=== PATIENT | male | born 1995 | race Caucasian/White ===

== ENCOUNTER 2024-01-13 14:27 | Emergency (ER) | payer OTHER, SELFPAY ==
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
[2024-01-13 14:45] VITALS: BP 111/59; PULSE 72; RESP 18; TEMP 36.7; O2SAT 98
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
== END 2024-01-13 15:40 | disposition home or self-care (01) ==
PROVIDERS: Emergency Provider Registered Nurse; PCP Family Medicine
DX: S63.502A Unspecified sprain of left wrist, initial encounter (principal); S66.912A Strain of unspecified muscle, fascia and tendon at wrist and hand level, left hand, initial encounter; V86.06XA Driver of dirt bike or motor/cross bike injured in traffic accident, initial encounter; S63.602A Unspecified sprain of left thumb, initial encounter; F41.9 Anxiety disorder, unspecified; G40.909 Epilepsy, unspecified, not intractable, without status epilepticus; J45.909 Unspecified asthma, uncomplicated; Z86.16 Personal history of COVID-19
CPT/HCPCS: 73110; 99203; G0463

== ENCOUNTER 2025-05-05 10:04 | Emergency (ER) | payer OTHER, SELFPAY ==
--- NOTE | 2025-05-05 10:12 | ED_ITS ---
HPI - Skin/Abscess/Foreign Bdy General Chief complaint: Skin/Abscess/Foreign Body Stated complaint: Rash Source: patient Mode of arrival: ambulatory Limitations: no limitations History of Present Illness HPI narrative: Patient is a 29-year-old male who presents to the clinic with complaints of a rash to his bilateral feet for a week. He states that he gardens outside without shoes on. He has tried using an old fungal cream, but has had no relief. He has not been taking anything over the counter. He does endorse that the rash is itchy, but is not painful. Related Data Home Medications ?Medication ?Instructions ?Recorded ?Confirmed ?Last Taken ?Type albuterol sulfate 90 mcg/actuation 1 inh inhalation Q4H PRN sob 01/13/24 01/13/24 Unknown History aerosol inhaler brivaracetam 50 mg tablet 50 mg PO BID 01/13/24 01/13/24 Unknown History (Briviact) carbamazepine 200 mg tablet See Rx Instructions .Route .COMPLEX 01/13/2412/21 Unknown History citalopram 20 mg tablet 20 mg PO DAILY 01/13/24 01/13/24 Unknown History fluticasone 500 mcg-salmeterol 50 1 inh inhalation BID 01/13/24 01/13/24 Unknown History mcg/dose blistr powdr for inhalation (Advair Diskus) Allergies Allergy/AdvReac Type Severity Reaction Status Date / Time No Known Allergies Allergy Verified 05/05/25 10:13 Review of Systems Review of Systems: CONSTITUTIONAL: Denies body aches, fever, chills, or sweats. EYES: Denies visual changes, redness, or discharge. ENT: Denies rhinorrhea, congestion CARDIOVASCULAR: Denies chest pain, palpitations, or edema. RESPIRATORY: Denies cough or dyspnea. GASTROINTESTINAL: Denies abdominal pain, nausea, vomiting, or diarrhea. SKIN: ?Reports a rash to bilateral feet. MUSCULOSKELETAL: Denies back pain, joint pain, or myalgia. NEUROLOGIC: Denies headache, numbness, tingling, or weakness. All systems reviewed & are unremarkable except as noted in HPI and below PMFSH Past Medical History Medical History Reactive airway disease post COVID Femur fracture Epilepsy Anxiety Social History Social History Smoking status: Never smoker Alcohol intake: unknown Substance use: current Substance use type: marijuana Living arrangements: with family Gender identity (if verbalized by the patient): Male Comments At time of signature, I have reviewed and agree with nursing past medical, surgical, social and family history unless otherwise noted. Please see nursing chart for further information. There is no relevant family history pertinent to the presenting complaint. Exam Narrative: GENERAL: Well-appearing HEAD: Normocephalic, atraumatic. EYES: ?conjunctivae clear, and EOMI. ENT: Mucous membranes moist. Oropharynx without edema, erythema or lesions. NECK: Supple. No lymphadenopathy CHEST: Clear to auscultation. HEART: Regular rate and rhythm. SKIN: Warm, dry. ?Erythemic papules to bilateral dorsum of feet. Evidence of scratching. Left foot 1.5cm abrasion consistent with scratching. No drainage. No tenderness with palpation. NEURO: ?Alert and oriented x3.? Course Course Level of Care: Express Care Visit Vital Signs Vital signs: Reviewed MDM - Skin/Abscess/Foreign Bdy MDM Narrative Medical decision making narrative: Discussed physical exam findings. Triamcinolone cream prescription. Advised supportive measures and signs/symptoms to go to the ER. Pt is appropriate for outpatient treatment and follow up. Differential Diagnosis Differential diagnosis: Likely cellulitis, insect bites and contact dermatitis Critical Care Time Critical Care Time Critical Care Time: No Discharge Plan Discharge Clinical Impression: Rash Patient Disposition: Home Condition: Stable Instructions: Acute Rash (ED) Additional Instructions: The most important part of your care is follow up with Primary care provider. Use Triamcinolone cream as prescribed. Take Benadryl 25mg every 6 hours for itching Take Claritin, Zyrtec, or Laurie daily for the next 7 days Avoid hot showers, Take cool showers. Wash the area with gentle soap and water only. Use skin cream as prescribed to reduce itchiness Avoid scratching when possible to prevent worsening of the condition and disruption of the skin that could lead to bacterial infection To relieve itching, place a cool washcloth or some ice over the area that itches, rather than scratching Follow up with primary care provider or seek ER if you have trouble breathing, become hoarse, or start wheezing, develop belly cramps, vomiting or feel dizzy. Patient Language: Prydeinig Prescriptions: New triamcinolone acetonide 0.1 % cream 1 applic topical BID Qty: 30 0RF No Action citalopram 20 mg tablet 20 mg PO DAILY carbamazepine 200 mg tablet See Rx Instructions .ROUTE .COMPLEX Rx Instructions: as prescribed Briviact 50 mg tablet 50 mg PO BID fluticasone propion-salmeterol [Advair Diskus] 500-50 mcg/dose blister with device 1 inh INHALATION BID albuterol sulfate 90 mcg/actuation HFA aerosol inhaler 1 inh INHALATION Q4H PRN (Reason: sob) Follow-up/Referrals: UNKNOWN,DOCTOR [Primary Care Provider] - Stand Alone Forms: Work/School Release IP Time of Disposition: 10:29
[2025-05-05 10:14] VITALS: BP 129/77; PULSE 64; RESP 16; TEMP 36.4; O2SAT 100
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
--- OUTSIDE RECORDS SUMMARY | 2025-05-05 11:11 | XMS_ITS | Referral Summary ---
Author Organization [facility] Medical Office Building B Address [address] [place] [address] Care Team Providers Care Director Skills Name Role Phone Jacquie Chamorro Unavailable Corinna Castellanos MD Primary Care Provider [phone] Encounters Date Type Department Care Team Description 03/28/2025 5:14 PM CDT - 03/28/2025 11:59 PM CDT Hospital Encounter [facility] Emergency, Room R Discharge Disposition: Discharge to home or self care 03/28/2025 5:35 PM CDT - 03/28/2025 8:42 PM CDT Emergency [facility] Emergency Department [address] [place], [place] [id number] Delmer Mccormack MD Seizure (HCC) (Primary Dx); Non compliance w medication regimen; Moderate asthma, unspecified whether complicated, unspecified whether persistent Discharge Disposition: Discharge to home or self care from Last 3 Months Allergies No known active allergies Medications citalopram (CeleXA) 10 mg tablet Take 1 tablet (10 mg total) by mouth daily Active albuterol HFA (PROVENTIL HFA,VENTOLIN HFA,PROAIR HFA) 90 mcg/actuation inhaler Inhale 2 puffs 08/27/20 22 Active fluticasone propion-salmet Mora (Advair Diskus) 500-50 mcg/dose diskus inhaler Inhale 1 puff every 12 hours 12/20/19 23 Active Incruse Ellipta 62.5 mcg/actuation blister with device INHALE 1 PUFF BY MOUTH AT THE SAME TIME EVERY DAY Active azelastine (ASTELIN) 137 mcg (0.1 %) nasal spray 2 sprays 2 (two) times a day 03/27/20 24 Active ascorbic acid (VITAMIN C) 500 mg tablet,chewabl e Take 1 tablet/chew tab (500 mg total) by mouth 2 (two) times a day 60 tablet/chew tab 08/12/20 24 Active Additional Information Patient not taking.Reported on 01/20/2025 aspirin 81 mg enteric coated tabletIndicati ons:prevention of thrombosis Take 1 tablet (81 mg total) by mouth 2 (two) times a day for 14 days 28 tablet 08/12/20 24 Active Additional Information Patient not taking.Reported on 01/20/2025 cholecalcifero l (VITAMIN D-3) 2000 unit capsule Take 1 capsule (2,000 Units total) by mouth daily 30 capsule 08/12/20 24 Active Additional Information Patient not taking.Reported on 01/20/2025 ondansetron (ZOFRAN) 4 mg tabletIndicati ons:Prevention of Post-Operative Nausea and Vomiting Take 1 tablet (4 mg total) by mouth every 6 (six) hours as needed for nausea or vomiting 30 tablet 1 08/12/20 24 Active Additional Information Patient not taking.Reported on 01/20/2025 senna-docusate (PERICOLACE) 8.6-50 mg Take 1 tablet by mouth 2 (two) times a day as needed for constipation 30 tablet 1 08/12/20 24 Active Additional Information Patient not taking.Reported on 01/20/2025 HYDROcodone-ac etaminophen (NORCO) 5-325 mg per tabletIndicati ons:Pain Take 1-2 tablets by mouth every 6 (six) hours as needed for pain 30 tablet 08/15/20 24 Active Additional Information Patient not taking.Reported on 01/20/2025 carBAMazepine (TEGretol) 200 mg tablet Take 3 tablets (600 mg total) by mouth 2 (two) times a day 180 tablet 11 01/21/20 25 Active brivaracetam (Briviact) 50 mg tablet TAKE 1 TABLET(50 MG) BY MOUTH TWICE DAILY 60 tablet 5 04/29/20 25 Active brivaracetam (Briviact) 50 mg tablet TAKE 1 TABLET(50 MG) BY MOUTH TWICE DAILY 60 tablet 03/02/20 25 025 Discontinued Active Problems Problem Noted Date Diagnosed Date Rupture of anterior cruciate ligament of right k nee 08/04/2024 Tear of medial meniscus of right knee, current 0 08/04/2024 Leukocytosis 04/21/2018 Assessment & Plan (04/21/2018 5:20 AM CDT): No obvious signs of infection. Possibly reactive or even side effect of tegretol. Will continue to monitor. If persistent, patient may need hematology follow up as outpatient. Cocaine abuse 05/09/2016 Seizure 05/09/2016 Assessment & Plan (04/21/2018 5:19 AM CDT): Likely due to missed doses of tegretol. Tegretol has been resumed. Neurology has been consulted, will await their recommendations. Seizure precautions. PRN ativan. Anxiety 05/09/2016 Resolved Problems Problem Noted Date Diagnosed Date Resolved Date Lactic acidosis 04/21/2018 04/21/2018 Assessment & Plan (04/21/2018 5:20 AM CDT): Likely due to seizures. Will continue to monitor. Social History Tobacco Use Types Packs/Day Years Used Date Smoking Tobacco: Never Smokeless Tobacco: Never Tobacco Cessation:Counseling Given: Not Answered Alcohol Use Standard Drinks/Week Comments Yes 0 (1 standard drink = 0.6 oz pur e alcohol) Has not drank in 2 months AUDIT-C Answer Date Recorded Q1: How often do you have a drink containing alc ohol? 2-4 times a month 08/04/2024 Q2: How many drinks containi ng alcohol do you have on a typical day when you are drinking? 1 or 2 08/04/2024 Q3: How often do you have si x or more drinks on one occasion? Never 08/04/2024 Personal Safety Answer Date Recorded Have you ever been in or are you currently in a harmful physical or emotional relationship or is someone making you feel afraid or unsafe? Denies 03/28/2025 Sex and Gender Information Value Date Recorded Sex Assigned at Not on file Legal Sex Male 4:10 AM [employer] Gender Identity Not on file Sexual Orientation Not on file Last Filed Vital Signs Vital Sign Reading Time Taken Comments Blood Pressure 132/80 03/28/2025 7:45 PM CDT Pulse 102 03/28/2025 8:15 PM CDT Temperature 36 C (96.8 F) 03/28/2025 7:45 PM CDT Respiratory Rate 26 03/28/2025 5:35 PM CDT Oxygen Saturation 94% 03/28/2025 8:0 3 PM CDT After ambulating Inhaled Oxygen Concentration - - Weight 70.3 kg (155 lb) 03/28/2025 5:35 PM CDT Height 172.7 cm (5' 8) 03/28/2025 5:35 PM CDT Body Mass Index 23.57 03/28/2025 5:35 PM CDT Plan of Treatment Not on file Medical Devices Implanted Type Area Slag Wheeler Device Identifier Shelf Expiration Date Model / Serial / Lot Lifenet Flexigraft Graftlink 7.5-10.5mm 60-80mm Frozen Allograft l - [id number] - [id number] Implanted:Qty: 1 on 08/12/2024 by Cordell Elias MD at [facility] Right: Knee Lifenet 01/22/2027 [employer] / [id number] / [employer] Suture [place] Knotless Tightrope Ii [id number] - [id number] Implanted:Qty: 1 on 08/12/2024 by Cordell Elias MD at [facility] Right: Knee [employer] 11/18/2028 AR-1588BTB- IB / / [id number] [employer] Suture [place] Attachable Button System Tightrope Ii Titanium [id number] - [id number] Implanted:Qty: 1 on 08/12/2024 by Cordell Elias MD at [facility] Right: Knee [employer] 12/19/2028 AR-1588TN-2 1 / / [id number] [employer] Suture 2-0 1.5in 24 Degree Curved Fiberstitch Fiberwire Ar-4580-24 - Sna - [id number] Implanted:Qty: 2 on 08/12/2024 by Cordell Elias MD at [facility] Right: Knee [employer] 11/18/2028 AR-4580-24 / NA / [id number] [employer] Suture 2-0 1.5in 24 Degree Curved Fiberstitch Fiberwire Ar-4580-24 - Sna - [id number] Implanted:Qty: 1 on 08/12/2024 by Cordell Elias MD at [facility] Right: Knee [employer] 11/18/2028 AR-4580-24 / NA / [id number] [employer] Suture 2-0 1.5in 24 Degree Curved Fiberstitch Fiberwire Ar-4580-24 - Sn/A - [id number] Implanted:Qty: 2 on 08/12/2024 by Cordell Elias MD at [facility] Right: Knee [employer] 11/18/2028 AR-4580-24 / N/A / [id number] [employer] Button Tightrope Abs Round Concave 11mm [id number] - Sn/A - [id number] Implanted:Qty: 1 on 08/12/2024 by Cordell Elias MD at [facility] Right: Knee [employer] 02/16/2029 AR-1588TB-3 IB / N/A / [id number] [employer] Swivelock C 4.75mm 19.1mm Closed Eyelet Vent [place] Suture Ar-2324bcc - [id number] Implanted:Qty: 1 on 08/12/2024 by Cordell Elias MD at [facility] Right: Knee [employer] 05/18/2028 AR-2324BCC / / [id number] [employer] Swivelock C 4.75mm 19.1mm Closed Eyelet Vent [place] Suture Ar-2324bcc - [id number] Implanted:Qty: 1 on 08/12/2024 by Cordell Elias MD at [facility] Right: Knee [employer] 05/18/2028 AR-2324BCC / / [id number] Procedures Procedure Name Priority Date/Time Associated Diagnosis Comments XR CHEST 1 VIEW ED 03/28/2025 6:13 PM CDT ECG 12-LEAD STAT 03/28/2025 5:45 PM CDT EGFR STAT 03/28/2025 5:45 PM CDT DIFFERENTIAL AUTO STAT 03/28/2025 5:4 5 PM CDT CARBAMAZEPINE LEVEL, TOTAL Add-On 03/28/2025 5:45 PM CDT ETHANOL STAT 03/28/2025 5:45 PM CDT COMPREHENSIVE METABOLIC PANEL STAT 03/28/2025 5:45 PM CDT CBC WITH AUTO DIFFERENTIAL STAT 03/28/2025 5:45 PM CDT from Last 3 Months Results * XR Chest 1 Vw Portable (03/28/2025 6:13 PM CDT) Anatomical Region Laterality Modality Body, Chest N/A Computed Radiogr aphy 03/28/2025 6:20 PM CDT Narrative 03/28/2025 6:22 PM CDT EXAM DESCRIPTION: XR CHEST 1 VIEW REASON FOR STUDY: sob Patient to ED via EMS from home with complaints of approx 10 min seizure. Hx seizures. States he has not taken meds x 2 days, states he forgot to take them. EMS admin 2 duo neb for asthma, states hx asthma. Patient 88% on room air upon arrival, placed on 2 LNC. TECHNIQUE: Frontal radiographic view(s) of the chest. COMPARISON: 04/20/2018 FINDINGS: LUNGS: Subtle hazy bibasilar airspace opacities are present which likely reflects atelectasis. However, early aspiration pneumonitis/developing pneumonia remains a possibility in the appropriate clinical setting. No definitive pleural effusion or pneumothorax. HEART/MEDIASTINUM: Cardiac silhouette normal in size. Mediastinal and hilar contours appear normal. LINES/TUBES: None. BONES: No acute osseous abnormality. IMPRESSION: 1. Subtle hazy bibasilar airspace opacities likely reflect atelectasis. However, early aspiration pneumonitis/developing pneumonia remains a possibility in the appropriate clinical setting . Clinical correlation is recommended THIS IS AN ELECTRONICALLY VERIFIED FINAL REPORT 03/28/2025 6:22 PM - Electronically signed by Leeanna Phillips M.D. AT: AT Report ID: [id number] Reading Location: [id number] Procedure Note Leeanna Phillips MD - 03/28/2025 EXAM DESCRIPTION: XR CHEST 1 VIEW REASON FOR STUDY: sob Patient to ED via EMS from home with complaints of approx 10 min seizure.Hx seizures. States he has not taken meds x 2 days, states he forgot to take them. EMS admin 2 duo neb for asthma, states hx asthma. Patient 88% onroom air upon arrival, placed on 2 LNC. TECHNIQUE: Frontal radiographic view(s) of the chest. COMPARISON: 04/20/2018 FINDINGS: LUNGS: Subtle hazy bibasilar airspace opacities are present which likely reflects atelectasis. However, early aspiration pneumonitis/developing pneumonia remains a possibility in the appropriate clinical setting. No definitive pleural effusion or pneumothorax. HEART/MEDIASTINUM: Cardiac silhouette normal in size. Mediastinal andhilar contours appear normal. LINES/TUBES: None. BONES: No acute osseous abnormality. IMPRESSION: 1. Subtle hazy bibasilar airspace opacities likely reflect atelectasis. However, early aspiration pneumonitis/developing pneumonia remains a possibility in the appropriate clinical setting . Clinical correlation is recommended THIS IS AN ELECTRONICALLY VERIFIED FINAL REPORT 03/28/2025 6:22 PM - Electronically signed by Leeanna Phillips M.D. AT: AT Report ID: [id number] Reading Location: [id number] Delmer Mccormack MD IMG XR PROCEDURES Final Result * ECG 12 lead (03/28/2025 5:45 PM CDT) 03/28/2025 5:45 PM CDT Narrative [facility] - 03/30/2025 6:31 AM CDT Vent Rate: 101 bpm RR Interval: 593 msec IA Interval: 124 msec QRS Duration: 93 msec QT Interval: 344 msec QTC Interval: 402 msec P-R-T [place]: 76 - 55 - 59 degrees IMPRESSION: SINUS TACHYCARDIA POSSIBLE LEFT ATRIAL ENLARGEMENT [-0.1mV P-WAVE IN V1/V2] ABNORMAL RHYTHM ECG Electronically Signed By: Andrew Montoya MD Delmer Mccormack MD ECG ORDERABLES Final Result [facility] * eGFR (03/28/2025 5:45 PM CDT) eGFR >90 >=60 mL/min/1. 73 m2 Comment: Interpretive Data Reference Interval Normal >/= 90 mL/min/1.73m2 Mildly decreased* 60 - 89 mL/min/1.73m2 Mildly to moderately decreased 45 - 59 mL/min/1.73m2 Moderately to severely decreased 30 - 44 mL/min/1.73m2 Severely decreased 15 - 29 mL/min/1.73m2 Kidney Failure < 15 mL/min/1.73m2 *Relative to young adult level Estimated glomerular filtration rate is determined by the 2020 CKD-EPI equation recommended by the National Kidney Foundation (A Unifying Approach to GFR Estimation: Recommendations of the NKF-ASK Task Force on Reassessing the Inclusion of Race in Diagnosing Kidney Disease, JASN 2020). The CKD-EPI equation should not be used for patients with unstable renal function and has not been validated in children and those over 70. Current interpretive data was last reviewed 2021. Blood 03/28/2025 5:45 PM CDT 03/28/2025 5:51 PM CDT us Delmer Mccormack MD LAB BLOOD ORDERABLES Final Res ult [facility] ([place]) [address] [facility] [place] [address] * (ABNORMAL) Differential, auto (03/28/2025 5:45 PM CDT) Neutrophil abs 13.93(H) 1.50 - 6.50 K/cumm Imm gran abs 0.41(H) 0.00 - 0.10 K/cumm [facility] ([place]) Lymphocyte abs 2.30 0.80 - 3.30 K/cumm [facility] ([place]) Monocyte abs 1.03(H) 0.20 - 0.80 K/cumm [facility] ([place]) Eosinophil abs 0.36 0.00 - 0.50 K/cumm [facility] ([place]) Basophil abs 0.11(H) 0.00 - 0.10 K/cumm [facility] ([place]) Neutrophil pct 76.7 % [facility] ([place]) Comment: Interpretive Data Percent cell count reference ranges are not reported, since discordance with absolute values may lead to misinterpretation of CBC data. Current Interpretive Data was last revised on 2018. Imm gran pct 2.3 % [facility] ([place]) Comment: Interpretive Data Percent cell count reference ranges are not reported, since discordance with absolute values may lead to misinterpretation of CBC data. Current Interpretive Data was last revised on 2018. Lymphocyte pct 12.7 % [facility] ([place]) Comment: Interpretive Data Percent cell count reference ranges are not reported, since discordance with absolute values may lead to misinterpretation of CBC data. Current Interpretive Data was last revised on 2018. Monocyte pct 5.7 % [facility] ([place]) Comment: Interpretive Data Percent cell count reference ranges are not reported, since discordance with absolute values may lead to misinterpretation of CBC data. Current Interpretive Data was last revised on 2018. Eosinophil pct 2.0 % [facility] ([place]) Comment: Interpretive Data Percent cell count reference ranges are not reported, since discordance with absolute values may lead to misinterpretation of CBC data. Current Interpretive Data was last revised on 2018. Basophil pct 0.6 % [facility] ([place]) Comment: Interpretive Data Percent cell count reference ranges are not reported, since discordance with absolute values may lead to misinterpretation of CBC data. Current Interpretive Data was last revised on 2018. Blood 03/28/2025 5:45 PM CDT 03/28/2025 5:51 PM CDT us Delmer Mccormack MD LAB BLOOD ORDERABLES Final Res ult [facility] ([place]) 1 [facility] Department of Laboratories [place], [place] [id number] * (ABNORMAL) CBC with auto differential (03/28/2025 5:45 PM CDT) WBC 18.14(H) 3.80 - 9.90 K/cumm Hgb 16.6 13.0 - 17.5 g/dL [facility] ([place]) Hct 47.1 38.9 - 50.3 % [facility] ([place]) Plt 462(H) 150 - 400 K/cumm [facility] ([place]) MPV 10.1 9.1 - 12.3 fL [facility] ([place]) RBC 5.35 4.30 - 5.80 M/cumm [facility] ([place]) MCV 88.0 81.3 - 96.4 fL [facility] ([place]) MCH 31.0 27.1 - 33.3 pg [facility] ([place]) MCHC 35.2 32.3 - 35.7 g/dL [facility] ([place]) RDW CV 11.9 11.1 - 14.9 % [facility] ([place]) RDW SD 38.4 35.7 - 48.1 fL [facility] ([place]) NRBC abs 0.00 0.00 - 0.01 K/cumm [facility] ([place]) Blood 03/28/2025 5:45 PM CDT 03/28/2025 5:51 PM CDT us Delmer Mccormack MD LAB BLOOD ORDERABLES Final Res ult [facility] ([place]) [address] Department [place] [address] * Ethanol (03/28/2025 5:45 PM CDT) Ethanol <10 <=10 mg/dL Comment: Interpretive Data Legal limit of intoxication > or = 80 mg/dL Levels > or = 400 mg/dL are potentially TOXIC. Current interpretive data was last revised on 2019. Blood 03/28/2025 5:45 PM CDT 03/28/2025 5:51 PM CDT Delmer Mccormack MD LAB BLOOD ORDERABLES Final Res ult Performing Organization Address City/[facility]/ZIP Co de Phone Number [facility] ([place]) [address] [place] [address] * (ABNORMAL) Carbamazepine level, total (03/28/2025 5:45 PM CDT) Pathologist [facility] Carbamazepine <3.0(L) 4.0 - 12.0 mcg/mL Comment: Interpretive Data Therapeutic or Toxic effect of anticonvulsant drugs may occur at different concentrations in different patients and the correlation between dose and clinical effect must be evaluated individually. Current interpretive data was last revised on 14. Testing performed by: [facility], [address] [facility] [place] [address] Blood 03/28/2025 5:45 PM CDT 03/28/2025 7:30 PM CDT Delmer Mccormack MD LAB BLOOD ORDERABLES Final Res ult [facility] ([place]) [address] [place] [address] * (ABNORMAL) Comprehensive metabolic panel (03/28/2025 5:45 PM CDT) Sodium 132(L) 135 - 145 mmol/L Potassium, pl 3.5 3.3 - 4.9 mmol/L [facility] ([place]) Chloride 91(L) 97 - 110 mmol/L [facility] ([place]) CO2 16(L) 22 - 32 mmol/L [facility] ([place]) Anion gap 25(H) 2 - 15 mmol/L [facility] ([place]) BUN 11 6 - 25 mg/dL [facility] ([place]) Creatinine 1.12 0.80 - 1.30 mg/dL [facility] ([place]) Glucose 233(H) 70 - 199 mg/dL [facility] ([place]) Comment: Interpretive Data Fasting glucose >/= 126 mg/dl is diagnostic for diabetes. Fasting is defined as no caloric intake for at least 8 hours. Fasting glucose between 100 mg/dl to 125 mg/dl is diagnostic of prediabetes. In a patient with classic symptoms of hyperglycemia or hyperglycemic crisis, a random glucose >/= 200 mg/dl is diagnostic for diabetes. In the absence of unequivocal hyperglycemia, results should be confirmed by repeat testing. The classification and Diagnosis of Diabetes Diabetes Care 2021; 46: S19-S40. Current interpretive data was last revised 2022. Calcium 10.4(H) 8.5 - 10.3 mg/dL [facility] ([place]) Bilirubin, total 0.5 0.1 - 1.2 mg/dL [facility] ([place]) Protein, pl 8.3 6.5 - 8.5 g/dL [facility] ([place]) Albumin 4.6 3.5 - 5.0 g/dL [facility] ([place]) Alk phos 106 40 - 130 Units/L [facility] ([place]) ALT 39 7 - 55 Units/L [facility] ([place]) AST 45 10 - 50 Units/L [facility] ([place]) Blood 03/28/2025 5:45 PM CDT 03/28/2025 5:51 PM CDT us Delmer Mccormack MD LAB BLOOD ORDERABLES Final Res ult [facility] ([place]) [address] [facility] Department [place] [address] from Last 3 Months Insurance [facility] MEDICAID [facility] IDPA [facility] Advance Directives For more information, please contact: [phone] * Full Code (Latest Code Status on File) Date Activated Date Inactivated Comments 04/20/2018 7:36 PM 04/21/2018 5:36 PM Healthcare Agents on File Name Relationship Healthcare Agent Relationshi p Communication Nayely Manuel Mother Health Care Agent Jaydon Jackson Father First Alternate Health Care Agent Care Teams Director Skills Relationship Specialty Start Date End Date Corinna Castellanos MD [address] [place] [address] PCP - General Obstetrics and Gynecology 01/20/25 Jacquie Chamorro PA [address] [place] [id number] Orthopedic Surgery 08/12/24
--- OUTSIDE RECORDS SUMMARY | 2025-05-05 11:11 | XMS_ITS | Clinical Summary ---
Author Organization [facility] Medical Office Building B Address [address] [place] [address] Care Team Providers Care Deputy Sheriff/Investigator Name Role Phone Jacquie Chamorro Unavailable Corinna Castellanos MD Primary Care Provider [phone] Allergies No known active allergies Medications citalopram [...] due to seizures. Will continue to monitor. Encounters Date Type Department Care Team Description 03/28/2025 5:35 PM CDT - 03/28/2025 8:42 PM CDT Emergency [facility] Emergency Department [address] [place] [address] Delmer Mccormack MD Seizure (HCC) (Primary Dx); Non compliance w medication regimen; Moderate asthma, unspecified whether complicated, unspecified whether persistent Discharge Disposition: Discharge to home or self care 03/28/2025 5:14 PM CDT - 03/28/2025 11:59 PM CDT Hospital Encounter [facility] Emergency, Room R Discharge Disposition: Discharge to home or self care from Last 3 Months Surgical History Surgery Date Site/Laterality Comments KNEE ARTHROSCOPY W/ ACL RECONSTRUCTION 07/20/2024 - 08/18 Right Medical History Medical History Date Comments Seizure (HCC) Epilepsy (HCC) Allergic rhinitis Asthma Social History Tobacco Use Types Packs/Day Years [...] on file 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 Gender Identity Not on file Sexual Orientation Not on file Obstetrics History Last Filed Vital Signs Vital Sign Reading [...] 03/28/2025 5:35 PM CDT Plan of Treatment Health Maintenance Due Date Last Done Comments Depression Screening 1997 Hepatitis C Screening 1997 Pneumococcal vaccine <65 (1 of 1 - PPSV23) 2003 12/04/2000, 01/05/1999 DTaP/Tdap/Td Vaccine (6 - Tdap) 2008 06/14/2007, 10/29/1998, 07/05/1998, Additional history exists Regular Well Visit/Exam 18-64 2015 Influenza Vaccine (Season Ended) 2025 09/04/2012, 11/09/2011, 10/03/2004, Additional history exists Hepatitis B Screening Completed 02/09/1998 , 1997, 1997 Varicella Vaccines Completed 06/14/2007, 01/05/1999 HPV Vaccines Completed 01/04/2012, 08/19, 06/20/2011 Medical Devices Implanted Type Area Linux Devops Engineer Device Identifier Shelf Expiration Date Model / Serial / Lot Lifenet Flexigraft Graftlink 7.5-10.5mm 60-80mm Frozen Allograft Fgl - [id number] - [id number] Implanted:Qty: 1 on 08/12/2024 by Cordell Elias MD at [facility] Right: Knee Lifenet 01/22/2027 [facility] / [id number] / [employer] Suture [place] Knotless Tightrope Ii [id number] - [id number] Implanted:Qty: 1 on 08/12/2024 by Cordell Elias MD at [facility] Right: Knee [employer] 11/18/2028 AR-1588BTB- IB / / [id number] [employer] Suture [place] Attachable Button System Tightrope Ii Titanium [id number] - [id number] Implanted:Qty: 1 on 08/12/2024 by Cordell Elias MD at [facility] Right: Knee [employer] 12/19/2028 AR-1588TN-2 1 / / [id number] [employer] Suture 2-0 1.5in 24 Degree Curved Fiberstitch Fiberwire Ar-4580-24 - Sna - [id number] Implanted:Qty: 2 on 08/12/2024 by Cordell Elias MD at [facility] Right: Knee [employer] 11/18/2028 AR-4580-24 / NA / [id number] [employer] Suture 2-0 1.5in 24 Degree Curved Fiberstitch Fiberwire Ar-4580-24 - Sna - [id number] Implanted:Qty: 1 on 08/12/2024 by Cordell Elias MD at [facility] Right: Knee [employer] 11/18/2028 AR-4580-24 / NA / [id number] [employer] Suture 2-0 1.5in 24 Degree Curved Fiberstitch Fiberwire Ar-4580-24 - Sn/A - [id number] Implanted:Qty: 2 on 08/12/2024 by Cordell Elias MD at [facility] Right: Knee [employer] 11/18/2028 AR-4580-24 / N/A / [id number] [employer] Button Tightrope Abs Round Concave 11mm [id number] - Sn/A - [id number] Implanted:Qty: 1 on 08/12/2024 by Cordell Elias MD at [facility] Right: Knee [employer] 02/16/2029 AR-1588TB-3 IB / N/A / [id number] [employer] Swivelock C 4.75mm 19.1mm Closed Eyelet Vent Mcclelland Suture Ar-2324bcc - [id number] Implanted:Qty: 1 on 08/12/2024 by Cordell Elias MD at [facility] Right: Knee [employer] 05/18/2028 AR-2324BCC / / [id number] [employer] Swivelock C 4.75mm 19.1mm Closed Eyelet Vent Mcclelland Suture Ar-2324bcc - [id number] Implanted:Qty: 1 on 08/12/2024 by Cordell Elias MD at [facility] Right: Knee [employer] 05/18/2028 AR-2324BCC / / [id number] Procedures Procedure Name Priority Date/Time Associated Diagnosis [...] Leeanna Phillips M.D. AT: AT Report ID: [id number] Reading Location: [id number] Procedure Note Leeanna Phillips MD - 03/28/2025 [...] Leeanna Phillips M.D. AT: AT Report ID: [id number] Reading Location: [place] [address] Delmer Mccormack MD IMG XR PROCEDURES Final Result * ECG 12 lead (03/28/2025 5:45 PM CDT) 03/28/2025 5:45 PM CDT Narrative [facility] - 03/30/2025 6:31 AM CDT Vent Rate: 101 bpm RR Interval: 593 msec OR Interval: 124 msec QRS Duration: 93 msec QT Interval: 344 msec QTC Interval: 402 msec P-R-T [place]: 76 - 55 - 59 degrees IMPRESSION: SINUS TACHYCARDIA POSSIBLE LEFT ATRIAL ENLARGEMENT [-0.1mV P-WAVE IN V1/V2] ABNORMAL RHYTHM ECG Electronically Signed By: Andrew Montoya MD Delmer Mccormack MD ECG ORDERABLES Final Result [facility] [employer] [facility] [[email or web address]] * eGFR (03/28/2025 5:45 PM CDT) eGFR [...] LAB BLOOD ORDERABLES Final Res ult [facility] ([place]) [address] [facility] Department [place] [address] * (ABNORMAL) Differential, auto (03/28/2025 5:45 PM CDT) Neutrophil abs 13.93(H) 1.50 - 6.50 K/cumm Imm gran abs 0.41(H) 0.00 - 0.10 K/cumm [facility] ([place]) Lymphocyte abs 2.30 0.80 - 3.30 K/cumm [facility] ([place]) Monocyte abs 1.03(H) 0.20 - 0.80 K/cumm [facility] ([place]) Eosinophil abs 0.36 0.00 - 0.50 K/cumm [facility] ([place]) Basophil abs 0.11(H) 0.00 - 0.10 K/cumm [facility] ([place]) Neutrophil pct 76.7 % [facility] ([place]) Comment: Interpretive Data Percent cell count reference ranges are not reported, since discordance with absolute values may lead to misinterpretation of CBC data. Current Interpretive Data was last revised on 2018. Imm gran pct 2.3 % [facility] ([place]) Comment: Interpretive Data Percent cell count reference ranges are not reported, since discordance with absolute values may lead to misinterpretation of CBC data. Current Interpretive Data was last revised on 2018. Lymphocyte pct 12.7 % [facility] ([place]) Comment: Interpretive Data Percent cell count reference ranges are not reported, since discordance with absolute values may lead to misinterpretation of CBC data. Current Interpretive Data was last revised on 2018. Monocyte pct 5.7 % [facility] ([place]) Comment: Interpretive Data Percent cell count reference ranges are not reported, since discordance with absolute values may lead to misinterpretation of CBC data. Current Interpretive Data was last revised on 2018. Eosinophil pct 2.0 % [facility] ([place]) Comment: Interpretive Data Percent cell count reference ranges are not reported, since discordance with absolute values may lead to misinterpretation of CBC data. Current Interpretive Data was last revised on 2018. Basophil pct 0.6 % [facility] ([place]) Comment: Interpretive Data Percent cell count reference ranges are not reported, since discordance with absolute values may lead to misinterpretation of CBC data. Current Interpretive Data was last revised on 2018. Blood 03/28/2025 5:45 PM CDT 03/28/2025 5:51 PM CDT us Delmer Mccormack MD LAB BLOOD ORDERABLES Final Res ult [facility] ([place]) [address] [facility] Department [place] [address] * (ABNORMAL) CBC with auto differential (03/28/2025 5:45 PM CDT) WBC 18.14(H) 3.80 - 9.90 K/cumm Hgb 16.6 13.0 - 17.5 g/dL [facility] ([place]) Hct 47.1 38.9 - 50.3 % [facility] ([place]) Plt 462(H) 150 - 400 K/cumm [facility] ([place]) MPV 10.1 9.1 - 12.3 fL [facility] ([place]) RBC 5.35 4.30 - 5.80 M/cumm [facility] ([place]) MCV 88.0 81.3 - 96.4 fL [facility] ([place]) MCH 31.0 27.1 - 33.3 pg [facility] ([place]) MCHC 35.2 32.3 - 35.7 g/dL [facility] ([place]) RDW CV 11.9 11.1 - 14.9 % [facility] ([place]) RDW SD 38.4 35.7 - 48.1 fL [facility] ([place]) NRBC abs 0.00 0.00 - 0.01 K/cumm [facility] ([place]) Blood 03/28/2025 5:45 PM CDT 03/28/2025 5:51 PM CDT Delmer Mccormack MD LAB BLOOD ORDERABLES Final Res ult Performing Organization Address [facility] Co de Phone Number [facility] ([place]) [address] [facility] [address] * Ethanol (03/28/2025 5:45 PM CDT) Ethanol <10 <=10 mg/dL Comment: Interpretive Data Legal limit of intoxication > or = 80 mg/dL Levels > or = 400 mg/dL are potentially TOXIC. Current interpretive data was last revised on 2019. Blood 03/28/2025 5:45 PM CDT 03/28/2025 5:51 PM CDT Delmer Mccormack MD LAB BLOOD ORDERABLES Final Res ult [facility] ([place]) 1 [facility] [place] [address] * (ABNORMAL) Carbamazepine level, total (03/28/2025 5:45 PM CDT) Carbamazepine <3.0(L) 4.0 - 12.0 mcg/mL Comment: Interpretive Data Therapeutic or Toxic effect of anticonvulsant drugs may occur at different concentrations in different patients and the correlation between dose and clinical effect must be evaluated individually. Current interpretive data was last revised on 14. Testing performed by: [facility], [address] [place]., [address] Blood 03/28/2025 5:45 PM CDT 03/28/2025 7:30 PM CDT us Delmer Mccormack MD LAB BLOOD ORDERABLES Final Res ult [facility] ([place]) [address] [facility] Department [place] [address] * (ABNORMAL) Comprehensive metabolic panel (03/28/2025 5:45 PM CDT) Sodium 132(L) 135 - 145 mmol/L Potassium, pl 3.5 3.3 - 4.9 mmol/L [facility] ([place]) Chloride 91(L) 97 - 110 [...] MD LAB BLOOD ORDERABLES Final Res ult [facility] ([place]) [address] [facility] Department [place] [address] from Last 3 Months Insurance [facility] MEDICAID [facility] IDPA [facility] Advance Directives For more information, please contact: [phone] * Full Code (Latest Code Status on File) Date Activated Date Inactivated Comments 04/20/2018 7:36 PM 04/21/2018 5:36 PM Healthcare Agents on File Name Relationship Healthcare Agent Relationshi p Communication Nayely Jackson Mother Health Care Agent Jaydon Jackson Father First Alternate Health Care Agent Care Teams Deputy Sheriff/Investigator Relationship Specialty Start Date End Date Corinna Castellanos MD [address] [place] [address] PCP - General Obstetrics and Gynecology 01/20/25 Jacquie Chamorro PA [address] [place] [id number] Orthopedic Surgery 08/12/24
--- OUTSIDE RECORDS SUMMARY | 2025-05-05 11:12 | XMS_ITS | Clinical Summary ---
Author Organization [facility] Address [address] [place] [address] Care Team Providers Care Agricultural Equipment Sales Manager Name Role Phone Lisa Page MD Primary Care Provider Source Comments [facility],non-owned Affiliates and Associated Physician Practices is amultiple site organization consisting of ambulatory clinics and hospital sitesin [place], [place], [place] and [place]. This disclosure is being madepursuant to the Care Everywhere program and may not contain all information available regarding this patient. Last updated 18.[facility] Allergies No known active allergies Medications * Be aware that medications may not be up to date on this document. Alwaysverify current medications with the patient. No known medications Active Problems Problem Noted Date Diagnosed Date Dizziness 01/27/2014 Nevus 05/20/2010 Overview (04/12/2015): Nevus 05/20/2010 Overview (04/12/2015): Family History Medical History Relation Name Comments CVA<55(male) Maternal Grandfather Stroke Maternal Grandfather Cancer Paternal Grandfather Asthma Sister Arrhythmia Neg Hx CVA<65(female) Neg Hx Cardiomyopathy Neg Hx Congenital Heart defect Neg Hx Heart Surgery Neg Hx Long QT Syndrome Neg Hx RI<55(male) Neg Hx RI<65(female) Neg Hx Marfan Syndrome Neg Hx Pacemaker Neg Hx Sudd. 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 Gender Identity Not on file Sexual Orientation Not on file Last Filed Vital Signs Vital Sign Reading Time Taken Comments Blood Pressure 118/60 01/27/2014 1:40 PM CDT Pulse 64 01/27/2014 1:40 PM CDT Temperature - - Respiratory Rate 16 01/27/2014 1:40 PM CDT Oxygen Saturation 98% 01/27/2014 1:40 PM CDT Inhaled Oxygen Concentration - - Weight 65.8 kg (145 lb 1 oz) 01/27/2014 1:40 PM CDT Height 147.7 cm (4' 10.15) 01/27/2014 1:40 PM C DT Body Mass Index 30.16 01/27/2014 1:40 PM CDT Plan of Treatment Health Maintenance Due Date Last Done Comments HIV SCREENING 2012 HEPATITIS C SCREENING 06/25/2015 DTAP/TDAP/TD VACCINES (1 - Tdap) 2016 HEPATITIS B VACCINE (1 of 3 - 19+ 3-dose series) 2016 COVID-19 VACCINE (1 - 2023-2 5 season) 2024 DEPRESSION SCREENING 11/19/2024 INFLUENZA VACCINE (Season Ended) 2025 ZOSTER VACCINE (1 of 2) 2047 HIB VACCINE Aged Out No longer eligi ble based on patient's age to complete this topic HPV VACCINE Aged Out No longer eligi ble based on patient's age to complete this topic MENINGOCOCCAL (Group B) VACC INE SHARED DECISION-MAKING Aged Out No longer eligibl e based on patient's age to complete this topic MENINGOCOCCAL GROUPS A/C/Y/W VACCINE Aged Out No longer eligible b ased on patient's age to complete this topic PNEUMOCOCCAL VACCINE Aged Out No long er eligible based on patient's age to complete this topic Insurance MEDICAID - [place] Care Teams Agricultural Equipment Sales Manager Relationship Specialty Start Date End Date Lisa Page MD PCP - General 01/27/14
--- OUTSIDE RECORDS SUMMARY | 2025-05-05 11:16 | XMS_ITS | Continuity of Care Document ---
Author Organization [facility] Address [address] [facility] [address] [place] [address] Phone Care Team Providers Care Direct Support Professional Caregiver Name Role Phone Sae Morales MD Unavailable [...] VISIT [facility] Risk Assesment Patient Focused Sd Est (Level 4) OFFICE/OUTPATIENT VISIT Sd Est (Level 4) OFFICE/OUTPATIENT VISIT Less Than 24 Hour Notice Of Appointment Cancellation Advance Directives Directive Yes / No Effective Date File Name No Information Encounters Encounter Description Practice Location Reason(s) For Visit Diagnoses Date Provider Providers Copied on Encounter [facility], [address] [place] [address], [id number], tel:[phone] [facility] No Information [address] , [place], [address], [place]. tel:[phone] Referring Provider: Thomas Reyes [facility] [address], [place], [address]. tel:[phone] Est (Level 4) OFFICE/OUTPA TIENT VISIT [facility], [address] [place] [address], [id number], tel:[phone] [facility] asthma (chief complaint) Severe persistent asthma, uncomplicatedOth er allergic rhinitisRash 5 Giovanna Fernandez. [address] , [place], [address], [place]. tel:[phone] Referring Provider: Garcia Lira [facility] [address], [place], [address]. tel:[phone] Est (Level 4) OFFICE/OUTPA TIENT VISIT [facility], [address] [place] [address], [id number], tel:[phone] [facility] allergies and asthma (chief complaint) Severe persistent asthmaOther allergic rhinitis [address] , [place], [address], [place]. tel:[phone] Referring Provider: Jules Dias, [address] [facility] [address], [place], [address]. tel:[phone] Est (Level 4) OFFICE/OUTPA TIENT VISIT [facility], [address] [place] [address], [id number], tel:[phone] [facility] allergies and asthma (chief complaint) Severe persistent asthmaOther allergic rhinitis Feb-0 3 [address] , [place], [address], [place]. tel:[phone] Referring Provider: Jules Dias, [address] [facility] [address], [place], [address]. tel:[phone] [facility], [address] [place] [address], [place], [place], [id number], [place] tel:[phone] [facility] No Information [address]. [address], [place], [address], [place]. tel:[phone] Referring Provider: Jasen Delgado[address] , [place], [address]. tel:[phone] Family History Family Member Type Diagnosis Age At Onset Problem No family history of Allergi c rhinitis Problem No family history of Lupus e rythematosus Problem No family histor y of Family history of rheumatoid arthritis Problem No family history of Asthma Payers Payer name Insurance type Covered constitution party ID Pilya debby(s) [facility] [id number] Social History Type Description Quantity Date Captured [...] rhinitis, RA, SLESHTobacco: Never smokerOccasional marijuana useOccupation: TilLanyrdHe rides dirt bikes for funEnvironmental HistoryLives in [...]
== END 2025-05-05 10:37 | disposition home or self-care (01) ==
DX: R21 Rash and other nonspecific skin eruption (principal); F41.9 Anxiety disorder, unspecified; F12.90 Cannabis use, unspecified, uncomplicated
CPT/HCPCS: 99213; G0463